=== PATIENT | male | born 1960 | race Caucasian/White ===

== ENCOUNTER 2016-05-16 20:47 | Emergency (ER) | payer BC ==
--- NOTE | 2016-05-16 20:55 | PDOC ---
History of Present Illness - General History Source: Patient, Family Exam Limitations: No Limitations - History of Present Illness Initial Comments: 05/16/16 21:26 The patient is a 55 year old male with a PMHx of HLD who presents to the ED with severe epigastric pain today. Per daughter who is a nurse, the patient is not a complainer, but she has noticed he has been fatigued for the past 4 days. Daughter gave the patient Omeprazole for the pain, with no relief. He became flushed, so she took his blood pressure, which was 160/115. Patient states he ate pizza today, which he believes caused the pain. Patient is a current smoker (half a pack a day). He denies Hx of acid reflux. He denies nausea, vomiting, diarrhea. He denies black stool or blood in stool. <Geeta Manzanares - Last Filed: 05/16/16 21:28> <Shilpa Gaytan - Last Filed: 05/17/16 05:15> - General Chief Complaint: Pain, Acute Stated Complaint: EPIGASTRIC PAIN Time Seen by Provider: 05/16/16 20:49 Past History <Geeta Manzanares - Last Filed: 05/16/16 21:28> <Shilpa Gaytan - Last Filed: 05/17/16 05:15> - Past Medical History Allergies/Adverse Reactions: Allergies Allergy/AdvReac Type Severity Reaction Status Date / Time No Known Allergies Allergy Unverified 05/16/16 20:55 Home Medications: Ambulatory Orders Atorvastatin Ca [Lipitor] 10 mg PO HS 05/16/16 Metoclopramide HCl 10 mg PO AC #20 tablet 05/17/16 Review of Systems - Review of Systems Able to Perform ROS?: Yes Comments:: 05/16/16 21:26 CONSTITUTIONAL: Absent: fever, no chills, no fatigue EYES: Absent: visual changes ENT: Absent: ear pain, no sore throat CARDIOVASCULAR: Absent: chest pain, no palpitations RESPIRATORY: Absent: cough, no SOB GI: Present: epigastric pain Absent: no nausea, no vomiting, no constipation, no diarrhea GENITOURINARY: Absent: dysuria, no frequency, no hematuria MUSCULOSKELETAL: Absent: back pain, no arthralgia, no myalgia SKIN: Absent: rash NEURO: Absent: headache <Geeta Manzanares - Last Filed: 05/16/16 21:28> *Physical Exam - Vital Signs Last Vital Signs Temp Pulse Resp BP Pulse Ox 99.1 F 63 18 176/108 100 05/16/16 20:56 05/16/16 20:56 05/16/16 20:56 05/16/16 20:56 05/16/16 20:56 - Physical Exam Comments: 05/16/16 21:27 GENERAL: The patient is awake, alert, and fully oriented, in no acute distress. HEAD: Normal with no signs of trauma. EYES: Pupils equal, round and reactive to light, extraocular movements intact, sclera anicteric, conjunctiva clear with no pallor. ENT: Ears normal, nares patent, oropharynx clear without exudates. Moist mucous membranes. NECK: Normal range of motion, supple without lymphadenopathy, JVD, or masses. LUNGS: Breath sounds equal, clear to auscultation bilaterally. No wheeze/ crackles. HEART: Regular rate and rhythm, normal S1 and S2 without murmur or rub. ABDOMEN: Moderate epigastric tenderness without rebound, masses. No MUrphys sign. Mildly distended. Soft. BS wnl. No hepatosplenomegaly. EXTREMITIES: Normal range of motion, no edema. No clubbing or cyanosis. No cords, erythema, or tenderness. NEUROLOGICAL: Cranial nerves II through XII grossly intact. Normal speech, normal gait. PSYCH: Normal mood, normal affect. SKIN: Warm, Dry, normal turgor, no rashes or lesions noted. <Portillo Manzanaresobjhony Chaparro - Last Filed: 05/16/16 21:28> Heart Score/ECG Review #1 05/16/16 21:28 Sinus bradycardia at 59 bpm <ManzanaresPortilloGeeta Shankar - Last Filed: 05/16/16 21:28> ED Treatment Course - LABORATORY CBC & Chemistry Diagram: 05/16/16 21:35 05/16/16 21:35 <Shilpa Gaytan - Last Filed: 05/17/16 05:15> Progress Note - Progress Note Progress Note: Documentation has been prepared under my direction and personally reviewed by me in its entirety. I attest that this documented accurately reflects all work, treatment, procedures and medical decision making performed by me. <Shilpa Gaytan - Last Filed: 05/17/16 05:15> Medical Decision Making - Medical Decision Making 05/16/16 22:33 As noted above, this 55-year-old man presents with a few day history of epigastric pain accompanied by occasional belching. No chest pain/shortness of breath/associated nausea or diaphoresis. Exam shows epigastric tenderness without other findings. EKG as noted above shows sinus bradycardia without evidence of ongoing ischemia. Because patient has history of smoking and hyperlipidemia, laboratory evaluation including cardiac enzymes was sent. Other than moderate leukocytosis (WBC 13,500) and prerenal azotemia, no significant abnormalities on laboratory values. Troponin is less than 0.03. In retrospect, patient and his daughter remember that he removed it embedded tick from the right lower abdominal wall 2 weeks ago. Patient takes frequent walks in wooded areas. Patient states that he had redness around the area of the tick bite but no clear "bull's eye" rash. No previous history of tickborne illness. Although he has not had measured fever(low-grade fever on presentation today) or other constitutional symptoms other than fatigue, we will send Lyme titers now. Patient reports no significant change in his epigastric pain after Protonix/ Pepcid. We will give him Maalox/Levsin ODT now No significant change in epigastric pain occurred after administration Maalox/ Levsin. Because of persistent pain/tenderness, upper abdomen should be imaged to rule out gallbladder disease/pancreatic disease/aortic aneurysm. Abdominal ultrasound performed. Other than cystic area in the right lobe of the liver/right renal cyst and fatty infiltration of the pancreas, there was no significant abnormality. Gallbladder and common bile duct or normal. Aorta also is normal without evidence of aneurysm or other abnormality. Patient given 30 mg of Toradol IV for analgesia. Soon after administration of the Toradol, patient became pain-free. Presentation consistent with slow gastric emptying of unclear etiology. Daughter expressed concern that patient will have recurrence of pain once Toradol effect wears off. Because of this, Reglan 10 mg IV given for its prokinetic activity. Patient continues to feel comfortable. Patient will be discharged with instructions to avoid high fat, acidic diet. Prescription for Reglan 10 mg to be taken before meals (#20) has been transmitted to patient's pharmacy. Most importantly, patient should follow-up with his general doctor and senior master scheduler within the next 3-4 days. If he has recurrence of severe symptoms prior to his follow-up appointments, he should return to the emergency room <Shilpa Gaytan - Last Filed: 05/17/16 05:15> *DC/Admit/Observation/Transfer - Attestations Scribe Attestion: 05/16/16 21:28 Documentation prepared by Geeta Manzanares, acting as medical equipment sales for Shilpa Gaytan MD. <Geeta Manzanares - Last Filed: 05/16/16 21:28> <Shilpa Gaytan - Last Filed: 05/17/16 05:15> Diagnosis at time of Disposition: Epigastric abdominal pain - Discharge Dispostion Disposition: HOME Condition at time of disposition: Stable - Prescriptions Prescriptions: Metoclopramide HCl 10 mg PO AC #20 tablet - Referrals Referrals: STAFF,NOT ON [Primary Care Provider] - - Patient Instructions Printed Discharge Instructions: Gastroparesis Additional Instructions: reglan 10mg 30 min before meals simethicone as needed avoid high fat or acidic foods/carbonated soda followup with your general doctor within the next 5 days followup with senior master scheduler as planned return to ER if you develop severe pain/vomiting
[2016-05-16 20:59] VITALS: PULSE 63; TEMP 99.1; BMI 29.7
[2016-05-16] MEDS ORDERED: PANTOPRAZOLE SODIUM 40 MG in SODIUM CHLORIDE 100 ML IVPB ONE (21:21)
[2016-05-16] MEDS ORDERED: PANTOPRAZOLE SODIUM 40 MG VIAL ONE (21:28)
[2016-05-16 21:49] LABS: EOSINOPHIL 1.9 % (0-4.5); MCH 31.6 pg (25.7-33.7); MCHC 34.2 g/dl (32.0-35.9); MEAN CELL VOLUME 92.5 fl (80-96); MEAN PLT VOLUME 8.1 fl (7.5-11.1); NEUTROPHILS 70.9 % (42.8-82.8); PLATELET COUNT 243 K/MM3 (134-434); RDW 12.7 % (11.9-15.9); WHITE BLOOD COUNT 13.4 K/mm3 (4.0-10.0)
[2016-05-16] MEDS ORDERED: FAMOTIDINE 20 MG/50 ML IVPB 50 ML IVPB ONE ×2 (21:56→21:57)
[2016-05-16 22:03] LABS: ALBUMIN 3.8 g/dl (3.5-5.0); ALK PHOS 49 U/L (32-92); ANION GAP 5 (8-16); BILIRUBIN,TOTAL 0.7 mg/dl (0.2-1.0); CALCIUM 9.2 mg/dl (8.4-10.2); CO2 23 mmol/L (22-28); CREATININE 0.7 mg/dl (0.6-1.3); GLUCOSE,RANDOM 98 mg/dl (74-106); SGOT/AST 24 U/L (10-42); SGPT/ALT 27 U/L (10-40); TOT PROT 6.2 g/dl (6.4-8.3)
[2016-05-16 22:04] LABS: CPK(DFH) 78 IU/L (38-174)
[2016-05-16 22:19] LABS: TROPONIN I (DFP) < 0.03 ng/ml (0.03-0.50)
[2016-05-16] MEDS ORDERED: HYOSCYAMINE SULFATE 0.125 MG *ODT PO ONE (22:29)
[2016-05-16] MEDS ORDERED: MAG HYDROX/AL HYDROX/SIMETH 30 ML UNIT-DOSE CUP PO ONE (22:29)
[2016-05-16] MEDS ORDERED: MAG HYDROX/AL HYDROX/SIMETH 30 ML UNIT-DOSE CUP ONE (22:30)
[2016-05-16] MEDS ORDERED: HYOSCYAMINE SULFATE 0.125 MG *ODT ONE (22:30)
[2016-05-16] MEDS ORDERED: KETOROLAC TROMETHAMINE 30 MG/1 ML VIAL IVPUSH ONE (22:59)
[2016-05-16] MEDS ORDERED: KETOROLAC TROMETHAMINE 30 MG/1 ML VIAL ONE (23:07)
[2016-05-17] MEDS ORDERED: METOCLOPRAMIDE HCL INJECTION 10 MG/2 ML VIAL IVPB ONE (00:18)
[2016-05-17 00:46] VITALS: BP 144/93
--- NOTE | 2016-05-17 18:27 | EKG ---
Test Reason : Blood Pressure : / mmHG Vent. Rate : 059 BPM Atrial Rate : 059 BPM P-R Int : 150 ms QRS Dur : 078 ms QT Int : 398 ms P-R-T Axes : 017 040 043 degrees QTc Int : 394 ms POOR DATA QUALITY, INTERPRETATION MAY BE ADVERSELY AFFECTED SINUS BRADYCARDIA OTHERWISE NORMAL ECG NO PREVIOUS ECGS AVAILABLE Confirmed by LAVERN STRATTON MD ([id number]) on 05/17/2016 6:27:25 PM Referred By: MD MADRID Confirmed By:LAVERN STRATTON MD
== END 2016-05-17 00:51 | disposition home or self-care (01) ==
LOC: FER 20:47
PROC: 3E033GC Introduction of Other Therapeutic Substance into Peripheral Vein, Percutaneous Approach (ICD-10-PCS; principal; 2016-05-16)
PROC: 3E0333Z Introduction of Anti-inflammatory into Peripheral Vein, Percutaneous Approach (ICD-10-PCS; 2016-05-16)
DX: R10.13 Epigastric pain (principal); I10 Essential (primary) hypertension; E78.5 Hyperlipidemia, unspecified; F17.210 Nicotine dependence, cigarettes, uncomplicated
CPT/HCPCS: 36415; 76700-TC; 80053; 82550; 83690; 84484; 85025; 86618; 93005; 99283-25